=== PATIENT | female | born 1945 | race Caucasian/White ===

== ENCOUNTER 2019-07-12 16:53 | Observation (INO) ==
[2019-07-12 17:42] LABS: Basophils % 0.6 %; Eosinophils # 0.2 K/mcL (0.0-0.6); Eosinophils % 2.3 %; Hematocrit 34.4 % (35.3-44.9); Hemoglobin 11.7 g/dL (11.5-15.4); Immature Granulocytes % 0.3 % (0-4); Lymphocytes % 27.9 %; Mean Corpuscular Hemoglobin 33.1 pg (28.0-33.3); Mean Corpuscular Volume 97.5 fL (83.0-100.0); Mean Platelet Volume 8.8 fL (9.4-12.4); Monocytes # 0.7 K/mcL (0.0-1.3); Monocytes % 9.9 %; Neutrophils # 4.1 K/mcL (1.6-8.9); Platelet Count 257 K/mcL (140-400); Red Blood Count 3.53 M/mcL (3.82-4.97); Red Cell Distribution Width 13.2 % (11.5-14.5)
[2019-07-12 17:50] LABS: Prothrombin Time 11.8 Seconds (9.4-12.1)
[2019-07-12 17:59] LABS: Alanine Aminotransferase 13 Units/L (7-52); Albumin 4.4 g/dL (3.5-5.7); Albumin/Globulin Ratio 1.6 (1.1-2.2); Alkaline Phosphatase 78 Units/L (34-104); Aspartate Amino Transferase 19 Units/L (13-39); BUN/Creatinine Ratio 15 (6-26); Bilirubin,Direct 0.1 mg/dL (0.0-0.2); Bilirubin,Indirect 0.5 mg/dL (0.0-1.0); Bilirubin,Total 0.6 mg/dL (0.3-1.0); Blood Urea Nitrogen 9 mg/dL (8-23); Calcium 9.7 mg/dL (8.6-10.3); Carbon Dioxide 23 mEq/L (23-29); Chloride 99 mEq/L (98-107); Globulin 2.8 g/dL (2.4-3.5); Glucose 105 mg/dL (70-105); Osmolality,Calculated 271 (280-300); Potassium 3.7 mEq/L (3.5-5.1); Sodium 131 mEq/L (136-145); Total Protein 7.2 g/dL (6.4-8.9); Troponin I < 0.03 ng/mL (< 0.04); eGFR For African Americans > 60 (> 60); eGFR For Non-African Americans > 60 (> 60)
[2019-07-12] MEDS: Nitroglycerin 0.4 MG TAB.SUBL SL PRN ×2 (17:59→18:04)
[2019-07-12] MEDS ORDERED: Aspirin 325 MG TABLET PO ONE (18:04)
[2019-07-12] MEDS ORDERED: Naloxone 0.4 MG/ML INJ IVP PRN (18:54)
[2019-07-12 19:30] LABS: Bilirubin,Urine Negative (Negative); Blood,Urine Small (Negative); Clarity,Urine Clear (Clear); Color,Urine Yellow (Yellow); Glucose,Urine (UA) Normal (Normal); Ketones,Urine Negative (Negative); Leukocyte Esterase,Urine Moderate (Negative); Nitrite,Urine Negative (Negative); Protein,Urine Negative (Neg-Trace); Specific Gravity,Urine 1.008 (1.010-1.025); Urobilinogen,Urine Normal (Normal)
[2019-07-12 19:47] LABS: WBC,Urine 0-3 per hpf (0-3)
[2019-07-12] MEDS ORDERED: Latanoprost 2.5 ML BOTTLE BOTH EYES SCH (22:00)
[2019-07-13] MEDS ORDERED: Pantoprazole 40 MG VIAL IVP SCH (00:30)
[2019-07-13 01:25] LABS: Basophils # 0.1 K/mcL (0.0-0.2); Basophils % 0.7 %; Eosinophils # 0.2 K/mcL (0.0-0.6); Eosinophils % 2.4 %; Hematocrit 31.9 % (35.3-44.9); Hemoglobin 10.8 g/dL (11.5-15.4); Immature Granulocytes % 0.1 % (0-4); Lymphocytes # 2.1 K/mcL (0.6-4.6); Lymphocytes % 31.6 %; Mean Corpuscular HGB Conc 33.9 g/dL (31.6-35.5); Mean Corpuscular Hemoglobin 33.5 pg (28.0-33.3); Mean Corpuscular Volume 99.1 fL (83.0-100.0); Mean Platelet Volume 9.1 fL (9.4-12.4); Monocytes % 14.4 %; Neutrophils # 3.4 K/mcL (1.6-8.9); Platelet Count 243 K/mcL (140-400); Red Blood Count 3.22 M/mcL (3.82-4.97); Red Cell Distribution Width 13.1 % (11.5-14.5); Segmented Neutrophils % 50.8 %; White Blood Count 6.7 K/mcL (4.3-11.1)
[2019-07-13 01:44] LABS: BUN/Creatinine Ratio 15 (6-26); Blood Urea Nitrogen 9 mg/dL (8-23); Calcium 9.4 mg/dL (8.6-10.3); Carbon Dioxide 25 mEq/L (23-29); Chloride 103 mEq/L (98-107); Glucose 92 mg/dL (70-105); Osmolality,Calculated 276 (280-300); Potassium 3.7 mEq/L (3.5-5.1); Sodium 134 mEq/L (136-145); eGFR For African Americans > 60 (> 60); eGFR For Non-African Americans > 60 (> 60)
[2019-07-13 07:12] VITALS: BP 153/61
[2019-07-13] MEDS ORDERED: Aspirin Enteric Coated 81 MG Tablet PO SCH (09:00)
[2019-07-13] MEDS ORDERED: amLODIPine 5 MG TABLET PO SCH (09:00)
[2019-07-13] MEDS ORDERED: Tiotropium 18 MCG inhalation IH SCH (10:00)
[2019-07-13] MEDS ORDERED: Budesonide/Formoterol 160/4.5 1 PUFF INH IH SCH (10:00)
== END 2019-07-13 11:23 | disposition home or self-care (01) ==
LOC: EMEROOARM 16:53 → 3BNU 16:53
PROVIDERS: ADMIT Internal Medicine; ATTEND Internal Medicine

== ENCOUNTER 2021-02-22 11:11 | Inpatient (IN) ==
[2021-02-22 11:43] LABS: Basophils # 0.1 K/mcL (0.0-0.2); Basophils % 0.7 %; Eosinophils # 0.5 K/mcL (0.0-0.6); Hematocrit 35.8 % (35.3-44.9); Hemoglobin 12.2 g/dL (11.5-15.4); Immature Granulocytes % 0.3 % (0-4); Lymphocytes # 1.6 K/mcL (0.6-4.6); Lymphocytes % 23.1 %; Mean Corpuscular HGB Conc 34.1 g/dL (31.6-35.5); Mean Corpuscular Hemoglobin 33.6 pg (28.0-33.3); Mean Corpuscular Volume 98.6 fL (83.0-100.0); Mean Platelet Volume 8.5 fL (9.4-12.4); Monocytes # 0.8 K/mcL (0.0-1.3); Platelet Count 370 K/mcL (140-400); Red Blood Count 3.63 M/mcL (3.82-4.97); Red Cell Distribution Width 13.4 % (11.5-14.5); Segmented Neutrophils % 57.9 %
[2021-02-22 12:01] LABS: BUN/Creatinine Ratio 10 (6-26); Blood Urea Nitrogen 6 mg/dL (8-23); Calcium 9.7 mg/dL (8.6-10.3); Carbon Dioxide 26 mEq/L (23-29); Chloride 99 mEq/L (98-107); Glucose 104 mg/dL (70-105); Osmolality,Calculated 272 (280-300); Potassium 3.6 mEq/L (3.5-5.1); Sodium 132 mEq/L (136-145); Troponin I < 0.03 ng/mL (< 0.04); eGFR For African Americans > 60 (> 60); eGFR For Non-African Americans > 60 (> 60)
[2021-02-22] MEDS ORDERED: methylPREDNISolone 125 MG/2 ML VIAL IVP ONE (14:07)
[2021-02-22] MEDS ORDERED: Ipratropium/Albuterol Neb 3 ML IH ONE ×3 (14:07→16:42)
[2021-02-22 14:28] LABS: INR 1.2; Prothrombin Time 12.9 Seconds (9.4-12.1)
[2021-02-22 14:31] LABS: Activated Partial Thrombo Time 31.4 Seconds (26.0-36.0)
[2021-02-22 15:22] LABS: Influenza A PCR Negative (Negative); Influenza B PCR Negative (Negative); Resp. Syncytial Virus PCR Negative (Negative)
[2021-02-22 15:24] LABS: SARS-CoV-2 by PCR (In House) Negative (Negative)
[2021-02-22] MEDS ORDERED: Ondansetron 4 MG/2 ML VIAL IVP PRN (18:11)
[2021-02-22] MEDS ORDERED: MOM Conc 10 ML UD.LIQ PO PRN (18:11)
[2021-02-22] MEDS ORDERED: Melatonin 3 MG TABLET PO PRN (18:11)
[2021-02-22] MEDS ORDERED: Naloxone 0.4 MG/ML INJ IVP PRN (18:11)
[2021-02-22] MEDS ORDERED: Azithromycin 500 MG in 0.9 % Sodium Chloride 250 ML IVPB ONE (18:23)
[2021-02-22] MEDS ORDERED: Ipratropium Neb 0.5 MG NEBULIZER IH PRN (18:25)
[2021-02-22] MEDS: Ipratropium/Albuterol Neb 3 ML IH SCH (20:41)
[2021-02-22] MEDS: cefTRIAXone 1,000 MG in 0.9 % Sodium Chloride Mini Bag 100 ML IVPB SCH (20:51)
[2021-02-23] MEDS ORDERED: Menthol 1 EACH LOZENGE PO PRN (03:50)
[2021-02-23] MEDS: Ipratropium/Albuterol Neb 3 ML IH SCH ×4 (04:35→20:18)
[2021-02-23 05:21] LABS: BUN/Creatinine Ratio 14 (6-26); Blood Urea Nitrogen 8 mg/dL (8-23); Calcium 9.8 mg/dL (8.6-10.3); Carbon Dioxide 24 mEq/L (23-29); Chloride 100 mEq/L (98-107); Glucose 147 mg/dL (70-105); Osmolality,Calculated 279 (280-300); Phosphorous 3.2 mg/dL (2.7-4.5); Potassium 3.6 mEq/L (3.5-5.1); Sodium 134 mEq/L (136-145); eGFR For African Americans > 60 (> 60); eGFR For Non-African Americans > 60 (> 60)
[2021-02-23] MEDS ORDERED: Acetaminophen 325 MG TABLET PO ONE (06:03)
[2021-02-23] MEDS: MethylPREDNISolone 40 MG/ML VIAL IVP SCH (09:45)
[2021-02-23] MEDS ORDERED: Acetaminophen 325 MG TABLET PO PRN (15:25)
[2021-02-23] MEDS: cefTRIAXone 1,000 MG in 0.9 % Sodium Chloride Mini Bag 100 ML IVPB SCH (21:10)
[2021-02-24] MEDS: Ipratropium/Albuterol Neb 3 ML IH SCH ×4 (03:42→20:37)
[2021-02-24 06:45] LABS: BUN/Creatinine Ratio 22 (6-26); Blood Urea Nitrogen 15 mg/dL (8-23); Calcium 9.7 mg/dL (8.6-10.3); Carbon Dioxide 24 mEq/L (23-29); Chloride 99 mEq/L (98-107); Glucose 128 mg/dL (70-105); Osmolality,Calculated 274 (280-300); Potassium 3.8 mEq/L (3.5-5.1); Sodium 131 mEq/L (136-145); eGFR For African Americans > 60 (> 60); eGFR For Non-African Americans > 60 (> 60)
[2021-02-24] MEDS: MethylPREDNISolone 40 MG/ML VIAL IVP SCH (09:09)
[2021-02-24] MEDS ORDERED: Fluticasone Propionate Nasal 50 MCG/SPRAY BOTTLE NS PRN (11:29)
[2021-02-24] MEDS ORDERED: Artificial Tears SOLN 15 ML BOTTLE BOTH EYES PRN (11:29)
[2021-02-24] MEDS ORDERED: Multivit/Ca/Min/Fe/FA 1 TAB TABLET PO SCH (11:30)
[2021-02-24] MEDS: amLODIPine 5 MG TABLET PO SCH ×2 (11:55→21:39)
[2021-02-24] MEDS: Aspirin Enteric Coated 81 MG Tablet PO SCH (11:55)
[2021-02-24] MEDS: Dorzolamide OPTH 10 ML BOTTLE BOTH EYES SCH ×2 (13:03→21:39)
[2021-02-24] MEDS ORDERED: Latanoprost 2.5 ML BOTTLE BOTH EYES SCH (21:00)
[2021-02-24] MEDS: cefTRIAXone 1,000 MG in 0.9 % Sodium Chloride Mini Bag 100 ML IVPB SCH (21:41)
[2021-02-25 03:24] LABS: Hematocrit 31.8 % (35.3-44.9); Hemoglobin 11.1 g/dL (11.5-15.4); Mean Corpuscular HGB Conc 34.9 g/dL (31.6-35.5); Mean Corpuscular Volume 97.5 fL (83.0-100.0); Mean Platelet Volume 8.8 fL (9.4-12.4); Platelet Count 403 K/mcL (140-400); Red Blood Count 3.26 M/mcL (3.82-4.97); Red Cell Distribution Width 13.7 % (11.5-14.5)
[2021-02-25 03:32] LABS: White Blood Count 13.4 K/mcL (4.3-11.1)
[2021-02-25 03:40] LABS: BUN/Creatinine Ratio 21 (6-26); Blood Urea Nitrogen 13 mg/dL (8-23); Calcium 9.5 mg/dL (8.6-10.3); Carbon Dioxide 25 mEq/L (23-29); Chloride 100 mEq/L (98-107); Glucose 120 mg/dL (70-105); Osmolality,Calculated 275 (280-300); Potassium 3.8 mEq/L (3.5-5.1); Sodium 132 mEq/L (136-145); eGFR For African Americans > 60 (> 60); eGFR For Non-African Americans > 60 (> 60)
[2021-02-25] MEDS: Ipratropium/Albuterol Neb 3 ML IH SCH ×3 (03:56→15:31)
[2021-02-25] MEDS: amLODIPine 5 MG TABLET PO SCH (08:52)
[2021-02-25] MEDS: MethylPREDNISolone 40 MG/ML VIAL IVP SCH (08:52)
[2021-02-25] MEDS: Aspirin Enteric Coated 81 MG Tablet PO SCH (08:52)
[2021-02-25] MEDS: Dorzolamide OPTH 10 ML BOTTLE BOTH EYES SCH (08:54)
[2021-02-25] MEDS ORDERED: Cholecalciferol (D-3) 1,000 UNIT (25MCG) TABLET PO SCH (09:00)
[2021-02-25] MEDS ORDERED: Ascorbic Acid 500 MG TABLET PO SCH (09:00)
[2021-02-25] MEDS ORDERED: Loratadine 10 MG TABLET PO SCH (09:00)
[2021-02-25 14:33] VITALS: BP 168/75; PULSE 88; TEMP 97.6; O2SAT 91
== END 2021-02-25 16:44 | disposition home or self-care (01) | DRG 193 ==
LOC: EMEROOARM 11:11 → 3BNU 11:11 → SUATTDRO 17:55 → 3BNU 18:42
PROVIDERS: ADMIT Hospitalist; ATTEND Internal Medicine